=== PATIENT | male | born 1970 | race Caucasian/White ===

== ENCOUNTER 2021-03-17 07:19 | Inpatient (IN) ==
[2021-03-17] MEDS ORDERED: SODIUM CHLORIDE 0.9% 500 ML IV SCH (07:45)
[2021-03-17] MEDS ORDERED: SODIUM CHLORIDE 0.9% 1000ML 1,000 ML IV SCH (07:45)
[2021-03-17] MEDS ORDERED: ATROPINE SULFATE 0.1 MG/ML 5ML SYR IV STA (07:48)
[2021-03-17] MEDS ORDERED: ATROPINE SULFATE 0.1 MG/ML 10ML SYR IV ONE (07:49)
[2021-03-17] MEDS ORDERED: ATROPINE SULFATE 0.1 MG/ML 5ML SYR IV ONE (07:49)
[2021-03-17] MEDS ORDERED: STAT IV Infusion **Titration per Protocol STA (08:01)
[2021-03-17 08:03] LABS: Basophils # (auto) 0.02 K/uL (0-0.2); Basophils % (auto) 0.2 %; Eosinophils # (auto) 0.13 K/uL (0-0.5); Eosinophils % (auto) 1.2 %; Hematocrit (blood only) 46.9 % (42-52); Immature Granulocytes # (auto) 0.02 K/uL (0.00-0.02); Immature Granulocytes % (auto) 0.2 %; Lymphocytes # (auto) 1.85 K/uL (1.2-3.4); Lymphocytes % (auto) 17.5 %; Mean Corpuscular Hemoglobin 30.2 pg (25-34); Mean Corpuscular Hgb Conc 34.1 g/dL (32-36); Mean Corpuscular Volume 88.5 fL (80-100); Mean Platelet Volume 11.7 fL (7.4-10.4); Monocytes # (auto) 0.57 K/uL (0.11-0.59); Monocytes % (auto) 5.4 %; Neutrophils # (auto) 7.99 K/uL (1.4-6.5); Neutrophils % (auto) 75.5 %; Platelet Count 208 K/uL (130-400); RDW Coefficient of Variation 12.5 % (11.5-14.5); RDW Standard Deviation 40.2 fL (36.4-46.3); White Blood Count 10.58 K/uL (4.8-10.8)
[2021-03-17 08:06] LABS: iSTAT Hemoglobin 16.3 g/dl (14.0-18.0); iSTAT Ionized Calcium 1.19 mmol/l (1.12-1.32); iSTAT Potassium 3.5 mmol/L (3.3-5.0)
[2021-03-17] MEDS ORDERED: DOPamine / D5W 400 MG/250 ML BAG IV SCH (08:15)
--- NOTE | 2021-03-17 08:16 | XRay Report ---
XR chest 1V portable CLINICAL HISTORY: syncope COMPARISON STUDY: No previous studies for comparison. FINDINGS: No pneumothorax. No pleural effusion. No large infiltrates or consolidative lesions are seen. Cardiomediastinal silhouette is within normal limits in size. No significant pulmonary vascular congestion.. Osseous structures: Mild degenerative changes of the spine. IMPRESSION: 1. No acute pulmonary process. ACT 112: Negative or not required by law. The above report was generated using voice recognition software. It may contain grammatical, syntax o r spelling errors. Electronically signed by: Kindra Gunter DO 03/17/2021 8:14 AM
[2021-03-17] MEDS ORDERED: fentaNYL citrate 100 MCG/2 ML VIAL IV STA (08:19)
[2021-03-17] MEDS ORDERED: MIDAZOLAM HCL 5 MG/ML 1 ML VIAL IV STA (08:19)
[2021-03-17] MEDS ORDERED: MIDAZOLAM HCL 1 MG/ML 2ML VIAL ONE ×3 (08:21→08:49)
[2021-03-17 08:31] LABS: Albumin Globulin Ratio 0.9 (0.9-2); Albumin Level 3.5 gm/dl (3.4-5.0); BUN Creatinine Ratio 20.7 (10-20); Bilirubin,Total 0.4 mg/dl (0.2-1); Calcium 8.6 mg/dl (8.5-10.1); Creatinine Clr Calc Pharmacy 95.4 ml/min; Est GFR (African American) 92.7 ml/min; Globulin 3.9 gm/dl (2.5-4.0); Phosphorus 1.9 mg/dl (2.5-4.9); Thyroid Stimulating Hormone 2.02 uIu/ml (0.300-4.500); Total Protein 7.4 gm/dl (6.4-8.2); Troponin I 0.175 ng/ml (0-0.045)
[2021-03-17] MEDS ORDERED: ASPIRIN CHEW 324 MG ONE (08:32)
[2021-03-17 08:37] LABS: Potassium 3.5 mmol/L (3.5-5.1)
[2021-03-17 08:43] LABS: Magnesium 2.4 mg/dl (1.8-2.4)
--- NOTE | 2021-03-17 09:00 | Emergency Department Note ---
History of Present Illness General Chief complaint: Shortness of Breath/Dyspnea Stated complaint: SOB,DIZZY,VOMITING,CHEST PAIN Source: patient, family () and RN notes reviewed Mode of arrival: ambulatory Limitations: no limitations History of Present Illness Provider complaint: dizzy, nausea, vomiting, near syncope This patient is a 50-year-old male who presents emergency department with his , stating that he has had several episodes of near syncope, dizziness and vomiting intermittently yesterday and into this morning. The patient had episodes of feeling well and tolerated the football game well yesterday. He did have 3-4 drinks throughout a 24-hour period yesterday but does not feel that he was overly intoxicated. states that approximately 2 AM he vomited profusely and was unusually short of breath. He admits to some chest heaviness. Patient states he has a history of "vasovagal episodes" and states he was evaluated by cardiology at [facility] in [place]. He states he tolerates his workouts well on a regular basis. He denies any recent illnesses and states he did receive the Covid vaccine x2. Allergies Allergy/AdvReac Type Severity Reaction Status Date / Time No Known Allergies Allergy Unverified 03/17/21 10:17 Past Med/Surg History Medical History Syncope Social History (Updated 03/17/21 @ 08:57 by Fiorella Perez MD) Smoking Status: Never smoker Hx Alcohol Use: Yes Alcohol type: wine Hx Substance Use: No Preferred Language: Angolan Communication Ability: Effective Outside Plant Supervisor Required: No Beliefs That Will Affect Care: None marital status: Current Living Situation: Spouse Feels Safe at Home: Yes Assistive Devices: None Review of Systems See HPI for pertinent positives & negatives. and A total of 10 systems reviewed and were otherwise negative Physical Exam Vital Signs Vital Signs - 24 hr 03/17/21 07:21 03/17/21 07:59 03/17/21 08:17 Temperature 36.2 C L Temperature Source Temporal Artery Scan Pulse Rate 95 H 28 L Pulse Rhythm Regular Respiratory Rate 16 20 Respiratory Effort / Characteristics Non-Labored Non-Labored Spontaneous Respiratory Depth Normal Normal Respiratory Pattern Regular Regular Blood Pressure Position Sitting Pulse Oximetry 95 99 Oxygen Delivery Method Room Air Room Air Nasal Cannula Oxygen Flow Rate 0 Sepsis Recent Fever Within 48 Hours No Sepsis New/Unexplained Change in Mental Status No Sepsis Action Taken by Nursing No Action Required Vital signs reviewed. Patient is pale in appearance. Blood pressure was unobtainable at triage. General: Somewhat ill-appearing 50 yo male, in some discomfort, sitting up at the bedside. HEENT: No scleral icterus, PERRLA, neck supple. Atraumatic. Cardiovascular: Markedly bradycardic and irregular Pulmonary: Clear to auscultation bilaterally, normal work of breathing. Abdomen: Soft, nontender, nondistended, positive bowel sounds. Musculoskeletal: Atraumatic, no peripheral edema. Neurologic: Patient awake alert and oriented x 3 Skin: Warm, dry, no rash Course Administered Medications Discontinued Medications Aspirin (Aspirin Chew 324 Mg) Confirm Administered Dose 324 mg .ROUTE .[employer] ONE Stop: 03/17/21 08:33 Last Admin: 03/17/21 08:20 Dose: 324 mg Documented by: [id number] Atropine Sulfate (Atropine Sulfate 0.1 Mg/Ml 5ml Syr) 0.5 mg IV NOW STA Stop: 03/17/21 07:49 Last Admin: 03/17/21 07:56 Dose: Not Given Documented by: [id number] Atropine Sulfate (Atropine Sulfate 0.1 Mg/Ml 5ml Syr) Confirm Administered Dose 0.5 mg IV .[employer] ONE Stop: 03/17/21 07:50 Last Admin: 03/17/21 07:50 Dose: 0.5 mg Documented by: [id number] Atropine Sulfate (Atropine Sulfate 0.1 Mg/Ml 10ml Syr) Confirm Administered Dose 1 mg IV .[employer] ONE Stop: 03/17/21 07:50 Last Admin: 03/17/21 09:19 Dose: Not Given Documented by: [id number] Bacitracin (Bacitracin Oint 0.9 Gm Pkt) Confirm Administered Dose 1 appln .ROUTE .[employer] ONE Stop: 03/18/21 08:24 Last Admin: 03/18/21 09:30 Dose: 1 appln Documented by: [id number] Cefazolin Sodium (Cefazolin 250 Mg/Ml 1 Gm Vial) 2,000 mg IV PREOP EM; Protocol Last Admin: 03/18/21 07:45 Dose: 2,000 mg Documented by: [id number] Cefazolin Sodium (Cefazolin 250 Mg/Ml 1 Gm Vial) Confirm Administered Dose 2,000 mg .ROUTE .STK-MED ONE Stop: 03/18/21 07:20 Last Admin: 03/18/21 09:30 Dose: Not Given Documented by: [id number] Enoxaparin Sodium (Enoxaparin Inj 40 Mg/0.4 Ml Syr) 40 mg SQ Q24H [facility] Stop: 04/16/21 10:44 Last Admin: 03/17/21 11:50 Dose: 40 mg Documented by: [id number] Fentanyl Citrate (Fentanyl Citrate 100 Mcg/2 Ml Vial) 100 mcg IV NOW STA Stop: 03/17/21 08:20 Last Admin: 03/17/21 08:30 Dose: 100 mcg Documented by: [id number] Fentanyl Citrate (Fentanyl Citrate 100 Mcg/2 Ml Vial) Confirm Administered Dose 100 mcg .ROUTE .STK-MED ONE Stop: 03/18/21 07:20 Last Increment: 03/18/21 09:30 Dose: 75 mcg Documented by: [id number] Sodium Chloride (Nss) 500 mls @ 999 mls/hr IV .Q31M [facility] Stop: 03/17/21 08:15 Last Infusion: 03/17/21 09:21 Dose: 0 mls/hr Documented by: [id number] Admin: 03/17/21 08:09 Dose: 999 mls/hr Documented by: [id number] Sodium Chloride (Nss 1000ml) 1,000 mls @ 150 mls/hr IV .Q6H40M [facility] Stop: 03/17/21 14:24 Last Infusion: 03/17/21 21:18 Dose: 0 mls/hr Documented by: [id number] Infusion: 03/17/21 12:21 Dose: 0 mls/hr Documented by: [id number] Admin: 03/17/21 08:08 Dose: 150 mls/hr Documented by: [id number] Dopamine HCl/Dextrose (Dopamine / D5w) 400 mg in 250 mls @ 0 mls/hr IV .Q0M EM; Protocol Stop: 04/16/21 08:14 Last Titration: 03/17/21 21:19 Dose: 0 mcg/kg/min, 0 mls/hr Documented by: [id number] Titration: 03/17/21 11:49 Dose: 0 mcg/kg/min, 0 mls/hr Documented by: [id number] Admin: 03/17/21 08:07 Dose: 2.5 mcg/kg/min, 9.1 mls/hr Documented by: [id number] Cosigned by: [id number] Potassium Chloride/Dextrose/Sod Cl (D5nss + 20meq Kcl) 20 meq in 1,000 mls @ 15 mls/hr IV .Q24H [facility] Stop: 04/16/21 10:14 Last Admin: 03/18/21 10:57 Dose: Not Given Documented by: [id number] Infusion: 03/18/21 10:57 Dose: 0 mls/hr Documented by: [id number] Admin: 03/17/21 11:50 Dose: 15 mls/hr Documented by: [id number] Potassium Phosphate 15 mmol/ (Sodium Chloride) 255 mls @ 88 mls/hr IV ONE ONE Stop: 03/17/21 16:53 Last Infusion: 03/17/21 16:56 Dose: 0 mls/hr Documented by: [id number] Admin: 03/17/21 14:32 Dose: 88 mls/hr Documented by: [id number] Ketorolac Tromethamine (Ketorolac Tromethamine 10 Mg Tablet) 10 mg PO Q6H PRN PRN Reason: Pain (rating 4,5,6,7,8,9,10) Stop: 03/23/21 09:21 Last Admin: 03/19/21 02:15 Dose: 10 mg Documented by: [id number] Admin: 03/18/21 18:42 Dose: 10 mg Documented by: [id number] Admin: 03/18/21 12:38 Dose: 10 mg Documented by: [id number] Lidocaine HCl (Lidocaine 1% Local 20 Ml Vial) Confirm Administered Dose 40 ml .ROUTE .STK-MED ONE Stop: 03/18/21 06:55 Last Admin: 03/18/21 10:14 Dose: Not Given Documented by: [id number] Midazolam HCl (Midazolam Hcl 5 Mg/Ml 1 Ml Vial) 2 mg IV NOW STA Stop: 03/17/21 08:20 Last Admin: 03/17/21 09:18 Dose: Not Given Documented by: [id number] Midazolam HCl (Midazolam Hcl 1 Mg/Ml 2ml Vial) Confirm Administered Dose 2 mg .ROUTE .STK-MED ONE Stop: 03/17/21 08:22 Last Admin: 03/17/21 08:30 Dose: 2 mg Documented by: [id number] Midazolam HCl (Midazolam Hcl 1 Mg/Ml 2ml Vial) Confirm Administered Dose 2 mg .ROUTE .STK-MED ONE Stop: 03/17/21 08:43 Last Admin: 03/17/21 10:38 Dose: Not Given Documented by: [id number] Midazolam HCl (Midazolam Hcl 1 Mg/Ml 2ml Vial) Confirm Administered Dose 2 mg .ROUTE .STK-MED ONE Stop: 03/17/21 08:50 Last Admin: 03/17/21 08:50 Dose: 2 mg Documented by: [id number] Midazolam HCl (Midazolam Hcl 5 Mg/Ml 1 Ml Vial) Confirm Administered Dose 5 mg .ROUTE .STK-MED ONE Stop: 03/18/21 07:20 Last Increment: 03/18/21 09:30 Dose: 3 mg Documented by: [id number] Potassium Chloride (Potassium Chloride Crtab 20 Meq Tabcr) 20 meq PO NOW STA Stop: 03/17/21 13:43 Last Admin: 03/18/21 08:42 Dose: Not Given Documented by: [id number] Sterile Water (Water, Sterile For Inj 10 Ml Vial) Confirm Administered Dose 10 ml .ROUTE .STK-MED ONE Stop: 03/18/21 06:55 Last Admin: 03/18/21 10:15 Dose: Not Given Documented by: [id number] Vancomycin HCl (Vancomycin Hcl 1000mg/20ml Vial) Confirm Administered Dose 50 mg .ROUTE .STK-MED ONE Stop: 03/18/21 06:55 Last Admin: 03/18/21 09:31 Dose: 50 mg Documented by: [id number] Critical Care Time Critical Care Time: Yes Total Critical Care Time: 60 I have personally spent 60 minutes of critical care time in the direct management of this patient. This was a life/limb threatening event. This 60 minutes is in excess of all separately billable procedures. Medical Decision Making Differential Diagnosis .ddsyncope Laboratory Data Result diagrams: 03/18/21 04:49 03/19/21 07:02 Lab Results 03/17/21 03/17/21 03/17/21 Range/Units 07:53 07:53 07:53 WBC 10.58 (4.8-10.8) K/uL RBC 5.30 (4.7-6.1) M/uL Hgb 16.0 (14.0-18.0) g/dL POC Hgb (14.0-18.0) g/dl Hct 46.9 (42-52) % POC Hct (42-52) % MCV 88.5 (80-100) fL MCH 30.2 (25-34) pg MCHC 34.1 (32-36) g/dL RDW Std Deviation 40.2 (36.4-46.3) fL RDW Coeff of Akhil 12.5 (11.5-14.5) % Plt Count 208 (130-400) K/uL MPV 11.7 H (7.4-10.4) fL Immature Gran % (Auto) 0.2 % Neut % (Auto) 75.5 % Lymph % (Auto) 17.5 % [place] % (Auto) 5.4 % Eos % (Auto) 1.2 % Baso % (Auto) 0.2 % Neut # (Auto) 7.99 H (1.4-6.5) K/uL Lymph # (Auto) 1.85 (1.2-3.4) K/uL [place] # (Auto) 0.57 (0.11-0.59) K/uL Eos # (Auto) 0.13 (0-0.5) K/uL Baso # (Auto) 0.02 (0-0.2) K/uL Immature Gran # (Auto) 0.02 (0.00-0.02) K/uL POC Sodium (135-144) mmol/L Sodium 140 (136-145) mmol/L POC Potassium (3.3-5.0) mmol/L Potassium 3.5 (3.5-5.1) mmol/L POC Chloride (101-112) mmol/L Chloride 109 H (98-107) mmol/L Carbon Dioxide 22 (21-32) mmol/L POC Total CO2 (24-31) mmol/L Anion Gap 9.0 (3-11) POC Anion Gap (16-25) mmol/L POC BUN (7-18) mg/dl BUN 22 H (7-18) mg/dl Creatinine 1.07 (0.6-1.4) mg/dl POC Creatinine (0.6-1.3) mg/dl Est Cr Clr Drug Dosing 95.4 ml/min Est GFR ( Amer) 92.7 ml/min Est GFR (Non-Af Amer) 80.0 ml/min BUN/Creatinine Ratio 20.7 H (10-20) Glucose 159 H (70-99) mg/dl POC Glucose (other) (70-99) mg/dl Calcium 8.6 (8.5-10.1) mg/dl POC Ioniz Calcium Omero (1.12-1.32) mmol/l Phosphorus 1.9 L (2.5-4.9) mg/dl Magnesium 2.4 (1.8-2.4) mg/dl Total Bilirubin 0.4 (0.2-1) mg/dl AST 24 (15-37) U/L ALT 47 (12-78) U/L Alkaline Phosphatase 75 (45-117) U/L Troponin I 0.175 H* (0-0.045) ng/ml Total Protein 7.4 (6.4-8.2) gm/dl Albumin 3.5 (3.4-5.0) gm/dl Globulin 3.9 (2.5-4.0) gm/dl Albumin/Globulin Ratio 0.9 (0.9-2) TSH 2.020 (0.300-4.500) uIu/ml Ethyl Alcohol mg/dL < 3.0 (0-3) mg/dl COVID-19 Eval Order SARS-CoV-2 (PCR) (Negative) 03/17/21 03/17/21 03/17/21 Range/Units 07:54 08:04 08:04 WBC (4.8-10.8) K/uL RBC (4.7-6.1) M/uL Hgb (14.0-18.0) g/dL POC Hgb 16.3 (14.0-18.0) g/dl Hct (42-52) % POC Hct 48 (42-52) % MCV (80-100) fL MCH (25-34) pg MCHC (32-36) g/dL RDW Std Deviation (36.4-46.3) fL RDW Coeff of Akhil (11.5-14.5) % Plt Count (130-400) K/uL MPV (7.4-10.4) fL Immature Gran % (Auto) % Neut % (Auto) % Lymph % (Auto) % [place] % (Auto) % Eos % (Auto) % Baso % (Auto) % Neut # (Auto) (1.4-6.5) K/uL Lymph # (Auto) (1.2-3.4) K/uL [place] # (Auto) (0.11-0.59) K/uL Eos # (Auto) (0-0.5) K/uL Baso # (Auto) (0-0.2) K/uL Immature Gran # (Auto) (0.00-0.02) K/uL POC Sodium 140 (135-144) mmol/L Sodium (136-145) mmol/L POC Potassium 3.5 (3.3-5.0) mmol/L Potassium (3.5-5.1) mmol/L POC Chloride 103 (101-112) mmol/L Chloride (98-107) mmol/L Carbon Dioxide (21-32) mmol/L POC Total CO2 22 L (24-31) mmol/L Anion Gap (3-11) POC Anion Gap 20.0 (16-25) mmol/L POC BUN 22 H (7-18) mg/dl BUN (7-18) mg/dl Creatinine (0.6-1.4) mg/dl POC Creatinine 1.0 (0.6-1.3) mg/dl Est Cr Clr Drug Dosing ml/min Est GFR ( Amer) ml/min Est GFR (Non-Af Amer) ml/min BUN/Creatinine Ratio (10-20) Glucose (70-99) mg/dl POC Glucose (other) 162 H (70-99) mg/dl Calcium (8.5-10.1) mg/dl POC Ioniz Calcium Omero 1.19 (1.12-1.32) mmol/l Phosphorus (2.5-4.9) mg/dl Magnesium (1.8-2.4) mg/dl Total Bilirubin (0.2-1) mg/dl AST (15-37) U/L ALT (12-78) U/L Alkaline Phosphatase (45-117) U/L Troponin I (0-0.045) ng/ml Total Protein (6.4-8.2) gm/dl Albumin (3.4-5.0) gm/dl Globulin (2.5-4.0) gm/dl Albumin/Globulin Ratio (0.9-2) TSH (0.300-4.500) uIu/ml Ethyl Alcohol mg/dL (0-3) mg/dl COVID-19 Eval Order Covid19 at [facility] SARS-CoV-2 (PCR) NEGATIVE (Negative) Imaging Data Radiologist's Impression: Chest X-Ray 03/17/21 07:33 XR chest 1V portable CLINICAL HISTORY: syncope COMPARISON STUDY: No previous studies for comparison. FINDINGS: No pneumothorax. No pleural effusion. No large infiltrates or consolidative lesions are seen. Cardiomediastinal silhouette is within normal limits in size. No significant pulmonary vascular congestion.. Osseous structures: Mild degenerative changes of the spine. IMPRESSION: 1. No acute pulmonary process. ACT 112: Negative or not required by law. The above report was generated using voice recognition software. It may contain grammatical, syntax or spelling errors. Electronically signed by: Kindra Gunter DO 03/17/2021 8:14 AM ECG Data Attestation: I personally reviewed and interpreted this ECG as follows: Indication: + SOB/dyspnea Rate (beats per minute): 25 Rhythm: + AV dissociation ECG Intervals/blocks: + Complete heart block ECG Findings: + Other (Ventricular escape ) Comparison ECG Date: no prior available Blood Pressure Blood Pressure Findings: Normal blood pressure Blood Pressure Disposition: further management by hospitalist MDM Narrative This patient was evaluated and appeared to be pale, somewhat ill and sitting up at the bedside. Triage was unable to obtain a blood pressure. He was placed on a director of cardiac cath lab by myself and again the blood did not register until a manual cuff was applied. Telemetry reveals complete heart block. Nursing staff was alerted immediately advised to obtain IV access as well as the code cart. Ster nal pacer pads were applied. Patient is noted to be in a third-degree heart block with a ventricular escape rhythm of 25 to 35 bpm. Patient was given atropine without any benefit. A dopamine drip was initiated for bradycardia. Patient's blood pressure remained stable initially however patient was noted to have long pauses between ventricular beats and vomited suddenly. He was given IV Versed and fentanyl and the external pacer was initiated. There was great difficulty in obtaining capture. Dr. Hancock of cardiology have been contacted in the meantime and was on his way for consultation. We did increase the voltage on the pacer. Patient was awake and had a fairly stable blood pressure. He did require additional IV sedation and supplemental oxygen due to the increased voltage. Patient was taken to the catheterization lab for temporary pacemaker with Dr. Hancock after extensive conversation with the patient, his at the bedside. Impression & Plan Third degree heart block Discharge Plan Visit Data Chief Complaint: Shortness of Breath/Dyspnea Stated Complaint: SOB,DIZZY,VOMITING,CHEST PAIN ED Provider: Fiorella Perez Discharge Problem: Third degree heart block Patient Disposition: Admitted As Inpatient Discharge Instructions Interventions: ED Discharge Assessment Last Done: 03/17/21 09:25
--- NOTE | 2021-03-17 09:42 | Electrophysiology Report ---
Date of Service March 17, 2021 Electrophysiology Procedure Electrophysiology Procedure Report The patient presented to the emergency room in complete heart block with intermittent loss of consciousness, he was placed on external pacing and sedated for discomfort. He continued to have intermittent heart block with long pauses. He was brought urgently to the [facility] where a temporary pacemaker was placed via the right femoral vein. The right groin was anesthetized with lidocaine local anesthetic, a 6 [place] sheath was placed in the groin, a [employer] quadripolar catheter was advanced to position in the right ventricular apex without difficulty. The sheath was sutured to the skin and pacing commenced using the pacemaker. The ventricular pacing threshold was less than 1 V. The pacemaker was programmed to 60 bpm with an output of 5 V. The patient will be sent to the intensive care unit. He was hemodynamically stable and awake at the conclusion of the procedure. [facility] Electrophysiology codes Indication for Procedure (1) AVB (atrioventricular block): Miscellaneous Procedures Procedure 1: EP Miscellaneous: 31756 Pacing temp percut, single
[2021-03-17] MEDS ORDERED: ENOXAPARIN INJ 40 MG/0.4 ML SYR SQ SCH (10:45)
--- NOTE | 2021-03-17 10:56 | XRay Report ---
XR chest 1V portable CLINICAL HISTORY: pacemaker placement COMPARISON STUDY: March 17, 2021 at 17:42 hours FINDINGS: No pneumothorax. No pleural effusion. No large infiltrates or consolidative lesions are seen. Right hemidiaphragm is elevated. Cardiomediastinal silhouette is within normal limits in size. No significant pulmonary vascular congestion.. Osseous structures: unremarkable Pacemaker is not seen. Multiple wire are seen superimposed on mediastinal silhouette which limits wesley luation. IMPRESSION: 1. No acute pulmonary process. ACT 112: Negative or not required by law. The above report was generated using voice recognition software. It may contain grammatical, syntax o r spelling errors. Electronically signed by: Kindra Gunter DO 03/17/2021 10:55 AM
--- NOTE | 2021-03-17 11:04 | History & Physical Report ---
Date of Service March 17, 2021 Assessment & Plan (1) Syncope: (2) AVB (atrioventricular block): (3) Bifascicular bundle branch block: Plan: 1. Syncope: He has a long history of presyncope and syncope which up to this point has not been identified however it sounds as though his rhythm has not been reported during an event. We now have clear evidence of complete heart block with symptoms. It is unlikely he has 2 explanations for his prior episodes and I suspect he was having intermittent AV block in the past as a cause of his presyncope and syncope. 2. Complete heart block: He has intermittent complete heart block, that is now well documented. There does not appear to be a reversible cause. His echocardiogram is normal, his Lyme screen is normal. At this point I would recommend pacemaker implantation. 3. 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 There does not appear to be a reversible cause for it and therefore I would recommend pacemaker implantation. 4. Elevated troponin: I suspect that is due to demand ischemia from his bradycardia and heart block, but I will repeat those studies to make sure this is not myocardial ischemia but there is no evidence for that as yet. Admission and Anticipated Discharge Date Admission Date: March 17, 2021 History of Present Illness Chief Complaint: Syncope Primary Care Provider: NO PCP This is a 50-year-old male who has a 4-year history of syncope, he believes it started around the summer 2016. He has had an evaluation at [facility] for which he describes a Holter monitor but no long-term monitoring. He has had multiple episodes, I am not quite sure the frequency but they are probably becoming more frequent. He does not always pass out, he can feel them coming on and sometimes can sit down and not pass out. He presents now with a prolonged episode of loss of consciousness, in the emergency room he was observed to be in complete heart block with multiple long pauses and periods of unresponsiveness. He did have vomiting when he awoke from one such episode although there was no evidence of aspiration to my knowledge. A external pacemaker was placed however it was not consistently capturing, he was brought to the [facility] where a temporary pacemaker was placed, details are noted elsewhere. Essentially immediately after a normal heart rate was achieved he was feeling better, had intermittent recollection of the events surrounding his emergency room visit but was able to provide a coherent history. He reports that for about 4 years he has been having intermittent lightheadedness which he and his have attributed to various things, he reports an evaluation at [place] where he believes they felt it was due to vagal episodes. It sounds as though a clinical event was not recorded by monitoring. The episodes have become quite frequent, they can occur almost anytime and can be minor or more significant. They are not associated with chest discomfort, he is very active including skiing and other activities without any exercise-induced discomfort. He thinks he intermittently has some dyspnea on exertion but is not consistent and not progressive. He has had no palpitations. Allergies Allergy/AdvReac Type Severity Reaction Status Date / Time No Known Allergies Allergy Unverified 03/17/21 10:17 Past Med/Surg History Medical History Syncope Social History (Updated 03/17/21 @ 08:57 by Fiorella Perez MD) Smoking Status: Never smoker Hx Alcohol Use: Yes Alcohol type: wine Hx Substance Use: No Preferred Language: Grenadian Communication Ability: Effective Manager Utilization Required: No Beliefs That Will Affect Care: None marital status: Current Living Situation: Spouse Other Information That Helps Us Care for You: No Feels Safe at Home: Yes Safety Concerns: Feels Safe At This Time Assistive Devices: None Review of Systems Review of Systems: All systems reviewed & are unremarkable except as noted in HPI & below Physical Exam Physical Exam: Constitutional: Alert, cooperative and in no distress. HEENT: Unremarkable Neck: No jugular venous distention, carotid pulses are normal and equal bilaterally without bruits. Pulmonary: Clear to auscultation bilaterally. Cardiac: Regular rhythm with no murmur, gallop or rub (he was in sinus rhythm with intact AV conduction at the time). Abdomen: Soft, nontender with normal bowel sounds. Extremities: No edema. Distal pulses intact. Neurologic: No focal findings. Gait is steady. Skin: No rash, ecchymoses or petechiae. Results & Data Results & Data ([facility]) Vital Signs (Past 12 Hours) Vital Signs Temp Pulse Pulse Resp BP BP Pulse Ox 03/17/21 10:03 36.7 C 67 67 16 132/70 96 03/17/21 10:02 37 C 63 20 132/70 96 03/17/21 09:25 24 L 12 104/56 L 94 03/17/21 08:55 80 43 H 96 03/17/21 08:52 60 30 H 97 03/17/21 08:36 30 L 16 103/53 L 03/17/21 08:25 32 L 16 98 03/17/21 08:20 78 19 99 03/17/21 08:17 28 L 20 99 03/17/21 08:15 87 18 99 03/17/21 08:10 92 H 17 100 03/17/21 08:05 97 H 17 99 03/17/21 08:00 97 H 16 99 03/17/21 07:55 88 15 98 03/17/21 07:50 90 16 96 03/17/21 07:49 65 18 98 03/17/21 07:21 36.2 C L 95 H 16 95 Laboratory Results Cardiac Enzymes 03/17/21 Range/Units 07:53 AST 24 (15-37) U/L Troponin I 0.175 H* (0-0.045) ng/ml CBC 03/17/21 Range/Units 07:53 WBC 10.58 (4.8-10.8) K/uL RBC 5.30 (4.7-6.1) M/uL Hgb 16.0 (14.0-18.0) g/dL Hct 46.9 (42-52) % Plt Count 208 (130-400) K/uL Neut # (Auto) 7.99 H (1.4-6.5) K/uL Lymph # (Auto) 1.85 (1.2-3.4) K/uL [place] # (Auto) 0.57 (0.11-0.59) K/uL Eos # (Auto) 0.13 (0-0.5) K/uL Baso # (Auto) 0.02 (0-0.2) K/uL Comprehensive Metabolic Panel 03/17/21 Range/Units 07:53 Sodium 140 (136-145) mmol/L Potassium 3.5 (3.5-5.1) mmol/L Chloride 109 H (98-107) mmol/L Carbon Dioxide 22 (21-32) mmol/L BUN 22 H (7-18) mg/dl Creatinine 1.07 (0.6-1.4) mg/dl Glucose 159 H (70-99) mg/dl Calcium 8.6 (8.5-10.1) mg/dl AST 24 (15-37) U/L ALT 47 (12-78) U/L Alkaline Phosphatase 75 (45-117) U/L Total Protein 7.4 (6.4-8.2) gm/dl Albumin 3.5 (3.4-5.0) gm/dl Intake and Output 03/16/21 03/17/21 03/17/21 22:59 06:59 14:59 Intake Total 1166.17 / 1166.17 Output Total 400 / 400 Balance 766.17 / 766.17 Intake: IV 1166.17 / 1166.17 DOPamine / D5W 400 mg In 250 ml 33.67 / 33.67 @ 2.5 MCG/KG/MIN 9.094 mls/hr IV .Q24H EM Rx#:[id number] Sodium Chloride 0.9% 1000ML 1, 632.5 / 632.5 000 ml @ 150 mls/hr IV .Q6H40M EM Rx#:[id number] Sodium Chloride 0.9% 500 ml @ 500 / 500 999 mls/hr IV .Q31M EM Rx#: [id number] Output: Urine 400 / 400 Other: Weight 99.5 kg Weight Measurement Method Built in [facility] Patient Weight 03/18/21 06:59 Weight 99.5 kg Diagnostic Findings Echocardiogram: Normal left ventricular systolic function, borderline LVH. Electrocardiogram in the emergency room: Complete heart block with a slow escape rhythm Electrocardiogram in the ICU following temporary pacemaker but with intact AV conduction: Sinus rhythm with bifascicular bundle branch block (right bundle branch block and left anterior fascicular block) Telemetry: Sinus rhythm with intact AV conduction alternating with periods of ventricular pacing using the temporary pacemaker. Code Status & VTE Plan VTE Prophylaxis Plan VTE Prophylaxis will be ordered: Yes PG Care Time/CCT Total # of Minutes Spent Total Time Spent with Patient: Total time spent is greater than 50% in coordination of care (as documented) at patient's floor/unit and/or counseling patient: Coding Level of Care Code 13496 Initial Inpt Care Lvl 3 Diagnoses AVB (atrioventricular block) I44.30 Bifascicular bundle branch block I45.2 Syncope R55 Syncope type: unspecified (1) Syncope Syncope type: unspecified Qualified Code(s): R55 - Syncope and collapse
[2021-03-17 11:44] LABS: Lyme Ab IgG w/WB Rflx Negative (Negative); Lyme Ab IgM w/WB Rflx Negative (Negative)
[2021-03-17] MEDS: D5NSS + 20MEQ KCL 20 MEQ/1,000 ML BAG IV SCH (11:50)
--- NOTE | 2021-03-17 12:13 | Critical Care Consultation ---
Date of Consultation March 17, 2021 Assessment & Plan (1) AVB (atrioventricular block): (2) Admitted to intensive care unit: --Syncopal episode Secondary to complete heart block S/p temporary pacemaker from the right groin area Follow-up Nubia nichols Cardiology on board Follow-up recommendation --Hypophosphatemia with low normal potassium Being replaced --Prophylaxis VTE: Lovenox GI: None Lines: Right femoral temporary pacemaker, peripheral Diet: Regular Plan: Monitor in the ICU Avoid beta-blockers for the time being At the patient's heart rate does not improve he will most likely need permanent pacemaker. N.p.o. post midnight Follow-up Antibodies 15 mmol of K-Phos ordered for the patient Please note the above document was generated using voice recognition software. It may contain grammatical, syntax or spelling errors.Any formal questions or concerns about the content, text or information contained within the body of this dictation should be directly addressed to the provider for clarification. History of Present Illness Attending Physician: John Hancock MD History of Present Illness 50-year-old male with history of syncopal episodes in the past present to the hospital with prolonged episode of loss of consciousness. In the ER patient was found to be in complete heart block with long pauses. Patient was taken to the We[facility]rization Specialist and temporary pacemaker was placed He is in the ICU for management. At the time of examination patient was in the room. Patient's heart rate was ranging between 60-63. Pacemaker was kicking in seldomly. He says he feels better after having the pacemaker placed in Did have nausea and vomiting when presented to the hospital but not anymore. No headache, no dizziness. No chest pain. Patient does have a lot of deer where he stays. 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 Beliefs That Will Affect Care: None marital status: Current Living Situation: Spouse Other Information That Helps Us Care for You: No Feels Safe at Home: Yes Safety Concerns: Feels Safe At This Time Assistive Devices: None Review of Systems Review of Systems: All systems reviewed & are unremarkable except as noted in HPI & below Physical Exam Physical Exam: Constitutional: No acute distress HEENT: EOMI, PERRLA Respiratory system: Good air entry bilaterally, no wheeze, no rhonchi, no crackles CVS: S1-S2 positive, no murmurs or gallops Abdomen: Soft, nontender, nondistended, positive bowel sounds x4 Extremities: +2 pulses bilaterally radialis/ dorsalis pedis, no cyanosis, no edema Neuro: Awake alert oriented x3 Psych: Normal mood and affect G/U: No Xavier Skin: no rashes, warm and dry Lymphatic: no cervical or axillary lymphadenopathy Results & Data Results & Data ([facility]) Vital Signs (Past 12 Hours) Vital Signs Temp Pulse Pulse Resp BP BP Pulse Ox 03/17/21 10:03 36.7 C 67 67 16 132/70 96 03/17/21 10:02 37 C 63 20 132/70 96 03/17/21 09:25 24 L 12 104/56 L 94 03/17/21 08:55 80 43 H 96 03/17/21 08:52 60 30 H 97 03/17/21 08:36 30 L 16 103/53 L 03/17/21 08:25 32 L 16 98 03/17/21 08:20 78 19 99 03/17/21 08:17 28 L 20 99 03/17/21 08:15 87 18 99 03/17/21 08:10 92 H 17 100 03/17/21 08:05 97 H 17 99 03/17/21 08:00 97 H 16 99 03/17/21 07:55 88 15 98 03/17/21 07:50 90 16 96 03/17/21 07:49 65 18 98 03/17/21 07:21 36.2 C L 95 H 16 95 03/17/21 07:53 03/17/21 07:53 Coding Level of Care Code 57752 Inpt Consult Level 3 Diagnoses AVB (atrioventricular block) I44.30 Admitted to intensive care unit Z78.9
[2021-03-17 12:27] LABS: Appearance Urine Clear (Clear); Bilirubin Urine Negative (Negative); Blood Urine Negative (Negative); Color Urine Yellow; Glucose Urine UA Trace (Negative); Ketones Urine Negative (Negative); Leukocyte Esterase Urine Negative (Negative); Nitrite Urine Negative (Negative); Protein Urine Negative (Negative); Specific Gravity Urine 1.013 (1.000-1.030); Urobilinogen Urine Negative (Negative); pH Urine 7.5 (4.5-7.5)
--- NOTE | 2021-03-17 13:02 | XCELERA ---
[id number]
[2021-03-17] MEDS ORDERED: POTASSIUM CHLORIDE CRTAB 20 MEQ TABCR PO STA (13:42)
[2021-03-17] MEDS ORDERED: POTASSIUM PHOS 3 MMOL/1 ML INFUSION IV STA (13:45)
[2021-03-17] MEDS ORDERED: POTASSIUM PHOSPHATE 15 MMOL in SODIUM CHLORIDE 0.9% 250 ML IV ONE (14:00)
--- NOTE | 2021-03-17 20:40 | Electrocardiogram Report ---
Test Reason : Blood Pressure : / mmHG Vent. Rate : 025 BPM Atrial Rate : 375 BPM P-R Int : 000 ms QRS Dur : 142 ms QT Int : 626 ms P-R-T Axes : 000 -55 068 degrees QTc Int : 403 ms Sinus rhythm with complete heart block and ventricular escape rhythm Abnormal ECG No previous ECGs available Confirmed by Jonh Hancock ([id number]) on 03/17/2021 8:40:32 PM Referred By: Confirmed By:John Hancock
--- NOTE | 2021-03-17 20:43 | Electrocardiogram Report ---
Test Reason : Blood Pressure : / mmHG Vent. Rate : 030 BPM Atrial Rate : 033 BPM P-R Int : 000 ms QRS Dur : 144 ms QT Int : 540 ms P-R-T Axes : 075 -57 107 degrees QTc Int : 381 ms Sinus rhythm with A-V dissociation and Idioventricular rhythm Left axis deviation Abnormal ECG When compared with ECG of 17-MAR-2021 07:46, (unconfirmed) No significant change Confirmed by John Hancock ([id number]) on 03/17/2021 8:43:09 PM Referred By: REFERRED SELF Confirmed By:John Hancock
--- NOTE | 2021-03-17 20:47 | Electrocardiogram Report ---
Test Reason : Blood Pressure : / mmHG Vent. Rate : 063 BPM Atrial Rate : 063 BPM P-R Int : 160 ms QRS Dur : 138 ms QT Int : 454 ms P-R-T Axes : 069 -79 009 degrees QTc Int : 464 ms Normal sinus rhythm Right bundle branch block Left anterior fascicular block Bifascicular block Abnormal ECG When compared with ECG of 17-MAR-2021 08:25, (unconfirmed) Sinus rhythm has replaced Idioventricular rhythm Vent. rate has increased BY 33 BPM Confirmed by John Hancock ([id number]) on 03/17/2021 8:47:07 PM Referred By: REFERRED SELF Confirmed By:John Hancock
[2021-03-18 05:16] LABS: Basophils # (auto) 0.03 K/uL (0-0.2); Basophils % (auto) 0.4 %; Eosinophils # (auto) 0.16 K/uL (0-0.5); Hematocrit (blood only) 41.9 % (42-52); Hemoglobin 13.9 g/dL (14.0-18.0); Immature Granulocytes # (auto) 0.02 K/uL (0.00-0.02); Immature Granulocytes % (auto) 0.2 %; Lymphocytes % (auto) 24.6 %; Mean Corpuscular Hemoglobin 29.8 pg (25-34); Mean Corpuscular Hgb Conc 33.2 g/dL (32-36); Mean Corpuscular Volume 89.7 fL (80-100); Mean Platelet Volume 11.4 fL (7.4-10.4); Monocytes # (auto) 0.92 K/uL (0.11-0.59); Monocytes % (auto) 11.3 %; Neutrophils # (auto) 4.99 K/uL (1.4-6.5); Neutrophils % (auto) 61.5 %; Platelet Count 153 K/uL (130-400); RDW Coefficient of Variation 12.8 % (11.5-14.5); RDW Standard Deviation 41.6 fL (36.4-46.3); Red Blood Count 4.67 M/uL (4.7-6.1); White Blood Count 8.12 K/uL (4.8-10.8)
[2021-03-18 05:45] LABS: BUN Creatinine Ratio 18.2 (10-20); Calcium 8.2 mg/dl (8.5-10.1); Creatinine Clr Calc Pharmacy 112.3 ml/min; Est GFR (African American) 111.2 ml/min; Magnesium 2.1 mg/dl (1.8-2.4); Potassium 3.7 mmol/L (3.5-5.1)
[2021-03-18 06:01] LABS: Troponin I 0.113 ng/ml (0-0.045)
[2021-03-18 06:02] LABS: Phosphorus 3.2 mg/dl (2.5-4.9)
[2021-03-18] MEDS ORDERED: VANCOMYCIN HCL 1000MG/20ML VIAL ONE (06:54)
[2021-03-18] MEDS ORDERED: WATER, STERILE FOR INJ 10 ML VIAL ONE (06:54)
[2021-03-18] MEDS ORDERED: LIDOCAINE 1% LOCAL 20 ML VIAL ONE (06:54)
[2021-03-18] MEDS ORDERED: MIDAZOLAM HCL 5 MG/ML 1 ML VIAL ONE (07:19)
[2021-03-18] MEDS ORDERED: fentaNYL citrate 100 MCG/2 ML VIAL ONE (07:19)
--- NOTE | 2021-03-18 07:52 | History & Physical Bridge Note ---
Date of Service March 18, 2021 History & Physical Bridge Note I have examined the patient, reviewed the History & Physical and in the interval since the performance of the History & Physical I have noted the following changes of clinical significance: no changes noted.
--- NOTE | 2021-03-18 07:53 | Pre Anesthesia Assessment ---
Date of Service March 18, 2021 Pre Sedation Assessment Vital Signs Temp Pulse Pulse Resp BP BP Pulse Ox 03/18/21 07:13 65 17 160/89 H 96 03/18/21 05:53 60 14 107/66 95 03/18/21 04:53 36.8 C 61 14 115/79 96 03/18/21 03:53 60 14 104/72 97 03/18/21 02:53 60 20 133/86 95 03/18/21 01:53 60 12 111/67 97 03/18/21 00:53 60 12 109/69 95 03/17/21 23:53 36.9 C 60 16 112/71 95 03/17/21 22:54 62 14 124/81 97 03/17/21 21:53 60 23 164/85 H 98 03/17/21 20:53 63 20 156/82 H 97 03/17/21 19:54 36.8 C 67 16 126/80 97 03/17/21 18:00 37 C 03/17/21 17:53 64 12 131/88 98 03/17/21 16:53 59 L 24 128/71 96 03/17/21 16:00 68 03/17/21 15:53 69 17 155/86 H 98 03/17/21 14:53 56 L 17 133/82 99 03/17/21 14:00 36.6 C 03/17/21 13:13 62 98 03/17/21 12:57 61 13 105/76 95 03/17/21 11:00 67 15 105/47 L 96 03/17/21 10:59 64 17 96 03/17/21 10:03 36.7 C 67 67 16 132/70 96 03/17/21 10:02 37 C 63 20 132/70 96 03/17/21 09:57 63 22 132/70 96 03/17/21 09:25 24 L 12 104/56 L 94 03/17/21 08:55 80 43 H 96 03/17/21 08:52 60 30 H 97 03/17/21 08:36 30 L 16 103/53 L 03/17/21 08:25 32 L 16 98 03/17/21 08:20 78 19 99 03/17/21 08:17 28 L 20 99 03/17/21 08:15 87 18 99 03/17/21 08:10 92 H 17 100 03/17/21 08:05 97 H 17 99 03/17/21 08:00 97 H 16 99 03/17/21 07:55 88 15 98 Cardiovascular RRR, no murmur, no edema Respiratory normal respiratory effort, lungs clear to auscultation Pre-Sedation Airway Assessment Smoking Status: Never smoker Hx Sleep Apnea: No Short, Thick Neck: No Thyromental Distance: > or= 3.5 Finger Breadths Oral Cavity: + WNL Mallampati Class: III ASA: ASA3 NPO Status Date of Last Intake of Fluids: 03/17/21 Date of Last Intake of Solid Food: 03/17/21 Procedure Planning Contraindications for Sedation: none Current Medications Reviewed: Yes Notes The planned sedation has been discussed with the patient. Informed Consent was obtained. I have identified the patient, determined the appropriateness of sedation and have assessed the patient immediately prior to the procedure. All medicine(s) and interventions are by my order.
[2021-03-18] MEDS ORDERED: BACITRACIN OINT 0.9 GM PKT ONE (08:23)
--- NOTE | 2021-03-18 09:19 | Electrophysiology Report ---
Date of Service March 18, 2021 Electrophysiology Procedure Electrophysiology Procedure Report Preoperative diagnosis: Intermittent complete heart block Biventricular bundle branch block Postoperative diagnosis: Same Procedure: Dual-chamber left bundle branch pacemaker implantation Surgeon: John Hancock MD Estimated blood loss: 20 cc Complications: None Disposition: Surgical Nurse recovery Procedure details: After obtaining informed consent for the procedure, the patient was brought to the laboratory and prepped and draped in the standard sterile manner. The left prepectoral region was anesthetized with 1% lidocaine local anesthetic and left axillary venipuncture was performed by percutaneous technique and a guidewire placed through the left subclavian vein into the superior vena cava. The area was further infiltrated with 1% lidocaine local anesthetic and a 5 cm incision was made parallel to the left clavicle and 2 cm below it and carried down to the anterior pectoralis fascia. A pacemaker pocket was formed by blunt dissection anterior to the pectoralis fascia and a vancomycin-soaked sponge was placed in the pocket. An 8 Nepali Medtronic lead introducer was placed over the guidewire into the left subclavian vein, the dilator and guidewire were removed and a bipolar active fixation steroid tipped atrial lead was advanced through the introducer into the superior vena cava. A guidewire was placed through the introducer and the introducer was stripped from the lead and guidewire. A 7 Nepali Medtronic lead introducer was placed over the guidewire into the left subclavian vein, the dilator and guidewire were removed and a septal sheath was advanced through the introducer over a guidewire and advanced into the right ventricular outflow tract. The guidewire and dilator were removed and the sheath was positioned in a mid septal location. A bipolar active fixation steroid tipped ventricular lead was advanced through the introducer and rotated to advance the screw into the septum. Septal penetration was confirmed with dye injection through the sh eath. The septal sheath was stripped away from the lead. A guidewire was placed back through the introducer and the introducer was removed from the guidewire. Pacing and sensing thresholds were evaluated in bipolar configuration and are recorded on the implant data sheet. Using a curved stylette the atrial lead was positioned in the region of the atrial appendage and the screw extended fixing t he lead in position. Pacing and sensing thresholds were evaluated in bipolar configuration and are recorded on the implant data sheet. Once the leads were in position they were attached to the anterior pectoralis fascia using 2 sutures of 2-0 silk around each lead collar. The vancomycin soaked sponge was removed from the pocket, hemostasis was obtained, the pacemaker was attached to the leads and placed in the pocket with the leads coiled beneath it. The temporary pacemaker was removed from the right groin under fluoroscopic guidance. The pacemaker incision was closed with a running double subcutaneous closure of 3-0 Vicryl absorbable suture, followed by running subcuticular skin closure of 4-0 Vicryl absorbable suture. Bacitracin ointment was placed on the incision and a dressing applied. [facility] Electrophysiology codes Indication for Procedure (1) AVB (atrioventricular block): Pacing Procedure 1: Pacin Insert/Replace Pacer A & V PG Moderate Sedation Codes Moderate Sedation Codes Procedure 1: Sedation/Anesthesia: 87629 Mod Sedation by the same physician;Init15 Min Child Age 5 & Up Procedure 2: Sedation/Anesthesia: 82302 Mod Sedation by the same physician; Ea [id number] Minutes
[2021-03-18] MEDS ORDERED: ACETAMINOPHEN 325 MG TAB PO PRN (09:22)
[2021-03-18] MEDS: D5NSS + 20MEQ KCL 20 MEQ/1,000 ML BAG IV SCH (10:57)
[2021-03-18] MEDS: KETOROLAC TROMETHAMINE 10 MG TABLET PO PRN ×2 (12:38→18:42)
--- NOTE | 2021-03-18 13:38 | Electrocardiogram Report ---
Test Reason : Blood Pressure : / mmHG Vent. Rate : 057 BPM Atrial Rate : 057 BPM P-R Int : 146 ms QRS Dur : 140 ms QT Int : 462 ms P-R-T Axes : 063 -67 001 degrees QTc Int : 449 ms Sinus bradycardia Right bundle branch block Left anterior fascicular block Abnormal ECG When compared with ECG of 17-MAR-2021 10:51, No significant change was found Confirmed by Kaleb Whitlock ([id number]) on 03/18/2021 1:38:07 PM Referred By: REFERRED SELF Confirmed By:Kaleb Whitlock
--- NOTE | 2021-03-18 14:42 | Communication Note ---
Date of Service: March 18, 2021 Examined post procedure, alert and oriented x3 resting comfortably in the bed vital signs reviewed, pacemaker functioning appropriately. Complains of mild soreness of left upper chest at operative site. Consented for HIV testing secondary to source patient from exploratory exposure. Stable for downgrade out of ICU. Coding Level of Care Code None Medical Decision Making Straight Forward
[2021-03-19] MEDS: KETOROLAC TROMETHAMINE 10 MG TABLET PO PRN (02:15)
[2021-03-19 07:53] LABS: BUN Creatinine Ratio 20.8 (10-20); Calcium 8.3 mg/dl (8.5-10.1); Creatinine Clr Calc Pharmacy 126.1 ml/min; Est GFR (African American) 118.7 ml/min; Est GFR (Non-African American) 102.4 ml/min; Potassium 3.9 mmol/L (3.5-5.1)
--- NOTE | 2021-03-19 08:21 | Cardiology Progress Note ---
Date of Service March 19, 2021 Assessment & Plan (1) Status post placement of cardiac pacemaker: Plan: He is doing well postop day #1, the site looks good, the device is working well and lead position looks stable. He is stable for discharge. He is going to follow-up with Dr. Oates who is a personal friend over the long run and he will have his incision checked this week in [place]. Admission and Anticipated Discharge Date Admission Date: March 17, 2021 Subjective He is feeling well postop day #1, no significant incisional discomfort, no chest discomfort or shortness of breath. Physical Exam Physical Exam: The incision is clean and dry with no active bleeding. Lungs clear Cardiac rhythm regular with no rub Results & Data ([facility]) Vital Signs (Past 12 Hours) Vital Signs Temp Pulse Pulse Resp BP BP Pulse Ox 03/19/21 07:19 49 L 03/19/21 07:00 36.8 C 56 L 18 125/78 96 03/19/21 03:30 36.6 C 57 L 18 146/89 H 97 03/18/21 22:20 51 L 03/18/21 21:53 37.0 C 54 L 16 145/83 H 95 03/18/21 20:19 37.1 C 58 L 18 133/81 96 Laboratory Results Comprehensive Metabolic Panel 03/19/21 Range/Units 07:02 Sodium 142 (136-145) mmol/L Potassium 3.9 (3.5-5.1) mmol/L Chloride 109 H (98-107) mmol/L Carbon Dioxide 29 (21-32) mmol/L BUN 17 (7-18) mg/dl Creatinine 0.82 (0.6-1.4) mg/dl Glucose 92 (70-99) mg/dl Calcium 8.3 L (8.5-10.1) mg/dl Intake and Output 03/18/21 03/19/21 03/19/21 22:59 06:59 14:59 Intake Total 275 / 1401.75 300 / 1401.75 Balance 275 / 1401.75 300 / 1401.75 Intake: Oral 275 / 1055 300 / 1055 Diagnostic Findings Postop ECG: Normal pacemaker function, when forced to ventricular paced the complex is quite good with a QRS duration of 120 ms. Telemetry: Normal pacemaker function, predominantly inhibited Pacemaker evaluation: Excellent pacing and sensing characteristics Chest x-ray: Good lead position, no pneumothorax. PG Care Time/CCT Total # of Minutes Spent Total Time Spent with Patient: Total time spent is greater than 50% in coordina tion of care (as documented) at patient's floor/unit and/or counseling patient: Coding Level of Care Code 17273 Post Operative Follow-Up Diagnoses Status post placement of cardiac pacemaker Z95.0 CPT Codes Dual Lead Pacemaker System - 07518 ([id number])
--- NOTE | 2021-03-19 09:32 | XRay Report ---
TWO VIEW CHEST CLINICAL HISTORY: Status post pacemaker implantation. FINDINGS: PA and lateral chest radiographs are compared to study dated 03/17/2021. A 2-lead cardiac pa cemaker has been placed and partially obscures the left upper chest. Leads project over the right atr ial appendage and the right ventricle. The heart is top normal for projection. The pulmonary vasculat ure is noncongested. The lungs and pleural spaces are clear. There is no pneumothorax. The bony thor ax appears intact. IMPRESSION: 1. A 2-lead cardiac pacemaker has been placed as above. No pneumothorax is seen post procedure. 2. There is no radiographic evidence of congestive failure. 3. No airspace consolidation or pleural effusion is identified. ACT 112: Negative or not required by law. Electronically signed by: Paramjit Miguel M.D. 03/19/2021 9:31 AM
--- NOTE | 2021-03-19 09:39 | Discharge Summary ---
Date of Service March 19, 2021 Admission HPI Per Admitting Provider This is a 50-year-old male who has a 4-year history of syncope, he believes it started around the summer 2016. He has had an evaluation at [facility] for which he describes a Holter monitor but no long-term monitoring. He has had multiple episodes, I am not quite sure the frequency but they are probably becoming more frequent. He does not always pass out, he can feel them coming on and sometimes can sit down and not pass out. He presents now with a prolonged episode of loss of consciousness, in the emergency room he was observed to be in complete heart block with multiple long pauses and periods of unresponsiveness. He did have vomiting when he awoke from one such episode although there was no evidence of aspiration to my knowledge. A external pacemaker was placed however it was not consistently capturing, he was brought to the [facility] where a temporary pacemaker was placed, details are noted elsewhere. Essentially immediately after a normal heart rate was achieved he was feeling better, had intermittent recollection of the events surrounding his emergency room visit but was able to provide a coherent history. He reports that for about 4 years he has been having intermittent lightheadedness which he and his have attributed to various things, he reports an evaluation at [facility] where he believes they felt it was due to vagal episodes. It sounds as though a clinical event was not recorded by monitoring. The episodes have become quite frequent, they can occur almost anytime and can be minor or more significant. They are not associated with chest discomfort, he is very active including skiing and other activities without any exercise-induced discomfort. He thinks he intermittently has some dyspnea on exertion but is not consistent and not progressive. He has had no palpitations. Admission Exam (Per Admitting) Constitutional Constitutional: Alert, cooperative and in no distress. HEENT: Unremarkable Neck: No jugular venous distention, carotid pulses are normal and equal bilaterally without bruits. Pulmonary: Clear to auscultation bilaterally. Cardiac: Regular rhythm with no murmur, gallop or rub (he was in sinus rhythm with intact AV conduction at the time). Abdomen: Soft, nontender with normal bowel sounds. Extremities: No edema. Distal pulses intact. Neurologic: No focal findings. Gait is steady. Skin: No rash, ecchymoses or petechi Discharge Data Consultations 03/17/21 10:03 Consult Creative Engagement Director Routine Procedures Performed Operation Date: 03/17/21 09:00 Actual Procedures s Fluoro Central Venous Access - John Hancock MD p Ins/RemTemporary Transvenous Pacer - John Hancock MD Operation Date: 03/18/21 07:30 Actual Procedures p Pacer with A/V Leads (Dual) - John Hancock MD Hospital Course (1) Status post placement of cardiac pacemaker: A dual-chamber pacemaker was implanted on March 18, 2021 without difficulty. A septal (left bundle branch) location was chosen. He is doing well postop day #1, the site looks good, the device is working well and lead position looks stable. He is stable for discharge. He is going to follow-up with Dr. Oates who is a personal friend over the long run and he will have his incision checked this week in [place]. Coding Level of Care Code None Diagnoses Status post placement of cardiac pacemaker Z95.0
--- NOTE | 2021-03-19 09:43 | Post Anesthesia Assessment ---
Date of Service March 19, 2021 Post Sedation Assessment Vital Signs Temp Pulse Pulse Resp BP BP BP 03/19/21 09:30 36.8 C 56 L 18 146/89 H 125/78 03/19/21 07:19 49 L 03/19/21 07:00 36.8 C 56 L 18 125/78 03/19/21 03:30 36.6 C 57 L 18 146/89 H 03/18/21 22:20 51 L 03/18/21 21:53 37.0 C 54 L 16 145/83 H 03/18/21 20:19 37.1 C 58 L 18 133/81 03/18/21 18:05 60 03/18/21 15:00 36.9 C 59 L 15 127/64 03/18/21 14:30 52 L 20 03/18/21 14:00 55 L 13 03/18/21 13:30 57 L 8 L 03/18/21 13:18 58 L 17 03/18/21 12:16 71 14 145/97 H 03/18/21 12:01 58 L 21 143/90 H 03/18/21 11:46 53 L 17 127/66 03/18/21 11:31 56 L 16 129/72 03/18/21 11:16 62 21 135/83 03/18/21 11:01 59 L 13 148/88 H 03/18/21 10:46 59 L 14 145/83 H 03/18/21 10:37 56 L 17 145/83 H 03/18/21 10:15 57 L 12 03/18/21 10:07 36.9 C 56 L 15 159/99 H 03/18/21 10:03 58 L 03/18/21 09:45 58 L 18 163/95 H Pulse Ox 03/19/21 09:30 96 03/19/21 07:19 03/19/21 07:00 96 03/19/21 03:30 97 03/18/21 22:20 03/18/21 21:53 95 03/18/21 20:19 96 03/18/21 18:05 03/18/21 15:00 95 03/18/21 14:30 94 03/18/21 14:00 95 03/18/21 13:30 95 03/18/21 13:18 96 03/18/21 12:16 97 03/18/21 12:01 97 03/18/21 11:46 96 03/18/21 11:31 96 03/18/21 11:16 96 03/18/21 11:01 96 03/18/21 10:46 95 03/18/21 10:37 97 03/18/21 10:15 96 03/18/21 10:07 96 03/18/21 10:03 03/18/21 09:45 95 Recovery Score Activity: Moves 4 extremities Respiration: Deep Breath/Cough Circulation: +/-20% PreAnes Value Consciousness: Fully Awake Oxygen Saturation: > 92% On Room Air Post Anesthesia Score: 10 Discharge Sedation Level of Care: Fast Track Phase II Post Sedation Plan On clinical assessment, the patient appears to have tolerated the sedation without complications. Patient is recovering as anticipated. Patient will continue to be monitored by nursing and may be discharged when sedation discharge criteria are met per below protocol. Upon Completions of procedure up to 15 minutes continue every 5 minute vital signs and the P.A.R. score; then discharge to a Phase I or Fast Track to Phase II per the following guidelines: * Discharge Patient to appropriate Phase II area if PAR is 8 or greater or return to pre- procedure baseline. The post - procedure orders will be as directed. * If PAR score is less than 8 or not return to pre-procedure baseline then patient will follow Phase I monitoring till PAR is reached for Phase II. The Phase I may be done in procedure room or may call to secure a Phase I area. * If naloxone or flumazenil are used for reversal, hold in Phase I for continued monitoring from when last reversal dose was given for a minimum of 60 minutes or longer pending the nurse and/or physician discretion of patient condition before discharge to Phase II. Please call the Sedation Physician to re-evaluate and complete post-note for discharge to Phase II area. Do NOT discharge from procedure sedation or Phase 1 until post- sedation evaluation note is complete by procedure /sedation MD Sedation Discharge Instructions to be given to the patient at discharge to home.
--- NOTE | 2021-03-19 13:02 | Electrocardiogram Report ---
Test Reason : Blood Pressure : / mmHG Vent. Rate : 060 BPM Atrial Rate : 060 BPM P-R Int : 000 ms QRS Dur : 120 ms QT Int : 446 ms P-R-T Axes : 269 -39 -56 degrees QTc Int : 446 ms Ventricular-paced rhythm Abnormal ECG When compared with ECG of 18-MAR-2021 09:40, Electronic ventricular pacemaker has replaced Sinus rhythm Confirmed by Kaleb Whitlock ([id number]) on 03/19/2021 1:01:45 PM Referred By: REFERRED SELF Confirmed By:Kaleb Whitlock
--- NOTE | 2021-03-26 13:31 | Coding Query ---
To promote full compliance with coding requirements relating to patient care, provider participation is requested in all cases of derrick worker uncertainty. Please assist us with the question(s) below: Coding Question(s): The diagnosis below was documented in the H&P, then subsequently fell off all further documentation. Please indicate if it is still a possible diagnosis or ruled out. Physician's Response(s): SUSPECT DEMAND ISCHEMIA - POSSIBLE DEMAND ISCHEMIA - (H&P documents, "Elevated troponin: I suspect that is due to demand ischemia from his bradycardia and heart block, but I will repeat those studies to make sure this is not myocardial ischemia but there is no evidence for that as yet" ( X ) Diagnosed and POA ( ) Diagnosed and not POA ( ) Ruled out ( ) Other (please specify) MTDD
--- NOTE | 2021-04-01 08:34 | Communication Note ---
Date of Service: April 01, 2021 Attempted to contact patient regarding laboratory results. Left voicemail to contact [phone] at cell phone [phone]. Coding Level of Care Code None
== END 2021-03-19 10:31 | disposition home or self-care (01) | DRG 243 ==
LOC: ED 07:19 → CC 09:25 → 1E 10:03 → 2W 03-18 17:01